=== PATIENT | female | born 1960 | race Caucasian/White ===

== ENCOUNTER 2019-04-11 15:35 | Emergency (ER) | payer MEDICAID, SELFPAY ==
[2019-04-11 15:38] VITALS: BP 151/81; PULSE 66; RESP 17; TEMP 36.8; O2SAT 99; BMI 28.4
--- NOTE | 2019-04-11 15:53 | ED.DCSUM_ITS ---
- ER Visit Summary Date of Service: 04/11/19 Chief Complaint: Neck pain History of Present Illness: The patient is a 59 F who presents with neck pain that has been constant for the past 3 days. Patient states that she woke up with pain in her neck 3 days ago. Patient describes her pain as throbbing. Patient states her pain is worse with movement. Patient states that prior to the neck pain starting she was doing a lot of extra lifting at work. Patient denies any radiation of the pain. Patient denies any paresthesias or weakness. Patient denies any fevers or chills. Patient denies any nausea or vomiting. Physical Examination: Vital signs are stable. Patient is afebrile. Patient is in no acute distress. Musculoskeletal exam reveals tenderness and spasm of the cervical paraspinal muscles, slightly worse on the left. There is no midline tenderness. There is no bony crepitance or step-off. Range of motion was limited in all motions of the cervical spine secondary to pain. Strength is 5/5 bilateral knee upper and lower extremities. There are no sensory deficits noted. Heart was regular rate and rhythm. Lungs are clear and equal bilaterally. Emergency Department Course and Treatment: Patient was advised that this is most likely musculoskeletal. Patient was given a dose of [place] here. Patient was given prescriptions for Naprosyn and Valium. Patient was instructed to follow- up with her primary care physician in 5 to 7 days. Patient understood and was agreeable with the plan. All questions were answered. Disposition: Discharge home Impression: Acute cervical strain This note was generated with [employer] dictation software. It may contain incorrect words, spelling, and punctuation that were not noted in review of the chart prior to signing ED Disposition - Plan for ED Patient: Disposition: Home or Assisted Living Diagnosis: Acute cervical myofascial strain Instructions: Neck Sprain/Strain Prescriptions: Naproxen [Naprosyn] 500 mg PO BID PRN #20 tab Prescription Printed Diazepam [Valium] 5 mg PO QHS PRN PRN #10 tab PRN Reason: Muscle Spasm Prescription Printed Referrals: [facility] Doctor,Out of [Primary Care Provider] - 5-7 Days
[2019-04-11 16:19] VITALS: RESP 18
[2019-04-11] MEDS: HYDROcodone Bitartrate/Apap 5/325 Tablet PO (16:21)
== END 2019-04-11 16:25 | disposition home or self-care (01) ==
LOC: ED 16:07
PROVIDERS: Emergency Provider Emergency Medicine
DX: S16.1XXA Strain of muscle, fascia and tendon at neck level, initial encounter (principal); M62.838 Other muscle spasm; X50.9XXA Other and unspecified overexertion or strenuous movements or postures, initial encounter; Y93.9 Activity, unspecified; Y92.9 Unspecified place or not applicable; Y99.9 Unspecified external cause status; I10 Essential (primary) hypertension; Z79.899 Other long term (current) drug therapy
CPT/HCPCS: 99282

== ENCOUNTER 2019-06-13 11:35 | Emergency (ER) | payer OTHER, MEDICAID, SELFPAY ==
[2019-06-13 11:37] VITALS: BP 169/76; PULSE 69; RESP 17; TEMP 36.7; O2SAT 99; BMI 28.5
--- NOTE | 2019-06-13 11:53 | ED.DCSUM_ITS ---
History of Present Illness Chief Complaint: Lower Extremity Injury Informant: Patient Onset: Days Context: Gradual Onset Current Severity: Mild - 3 days Maximum Severity: Moderate Narrative: Patient presents secondary to left knee pain. She states she was at work on Thursday (06/10) and was moving some heavy boxes. She does not remember a specific movement where she suddenly felt knee pain but states her knee started bothering her while she was at work. It is continued throughout the weekend. She denies any problems with her knees previously. She has never had surgery or injections. - Past Medical History (1) Hypertension Status: Chronic Past Medical History - Allergies and Home Meds Allergies/Adverse Reactions: Allergies No Known Allergies Allergy (Verified 06/13/19 11:36) Primary Care Physician: [facility] Doctor,Out of [NON-STAFF] - Prior records reviewed: Yes Lives: Spouse/ Significant Other Smoking Status: Never smoker Review of Systems General: Denies: Chills, Fever Eyes: Denies: Visual changes - bilaterally ENT: Denies: Bilateral ear pain Cardiovascular: Denies: Chest pain Respiratory: Denies: Dyspnea, Cough Gastrointestinal: Denies: Abdominal pain, Nausea, Vomiting, Diarrhea Genitourinary: Denies: Dysuria Musculoskeletal: Reports: Extremity Pain Skin: Denies: Rash Neurological: Denies: Parasthesia, Numbness Hematologic: Denies: Easy bruising, Easy bleeding Allergy: Denies: Uticaria Physical Exam Vital Signs/Narrative: Vital Signs Temp Pulse Resp BP Pulse Ox 06/13/19 11:37 98.1 F 69 17 169/76 H 99 Inital Vital Signs reviewed: Yes General: Well nourished, Well developed Head: Normocephalic ENT: Moist mucous membranes Neck: Supple Cardiovascular: Regular rate, Regular rhythm Respiratory: No distress, CTA bilaterally Abdomen: Soft, Nontender Extremities: - - Tenderness palpation along the medial joint line of the left knee. No significant edema noted. No overlying skin changes. She does not have significant pain with varus and valgus stress. She is able to raise her leg off the bed without difficulty. She has strong distal pulses and normal sensation. 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 Electronically Signed: Heron Roman, at 12:27 EDT , Service support , 06/13/19 12:00 Knee 4 or More Views [RAD] Stat - Medical Decision Making Results discussed with patient. She has evidence of a left knee sprain. She be treated with anti-inflammatories, Dylan wrap, crutches. She will follow-up with [employer] and if not improved will be referred to orthopedics. Patient is given work restrictions. ED Disposition - Plan for ED Patient: Disposition: Home or Assisted Living Diagnosis: Knee sprain Instructions: Knee Sprain Prescriptions: Naproxen [Naprosyn] 500 mg PO BID PRN PRN #20 tab PRN Reason: Pain Score 4-10/10 Transmission Status: Pending to [facility] Referrals: [facility] [GROUP OF PHYSICIANS] - 3-5 Days
--- NOTE | 2019-06-13 12:00 | RAD_ITS ---
STUDY: X-RAY - LEFT KNEE REASON FOR EXAM: Female, 59 years old. CONTINUED PAIN, WORSE ANTEROMEDIAL, S/P INJURY 2 DAYS AGO; -- UNABLE TO BEAR WEIGHT TECHNIQUE: 4 view(s) of the knee. COMPARISON: None. FINDINGS: Normal visualized distal femur. Normal visualized proximal tibia and fibula. Normal proximal tibiofibular articulation. Normal medial femorotibial compartment. Normal lateral femorotibial compartment. Normal patellofemoral articulation. Calcification in the soft tissues overlying the distal femoral condyle suggestive of Merline-Stieda disease. 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 Electronically Signed: Heron Roman, at 12:27 EDT , Service support ,
[2019-06-13 13:53] VITALS: BP 151/71; PULSE 60; RESP 17; O2SAT 98
== END 2019-06-13 13:54 | disposition home or self-care (01) ==
PROVIDERS: Emergency Provider Emergency Medicine
DX: S83.92XA Sprain of unspecified site of left knee, initial encounter (principal); X58.XXXA Exposure to other specified factors, initial encounter; Y93.89 Activity, other specified; Y92.89 Other specified places as the place of occurrence of the external cause; Y99.0 Civilian activity done for income or pay; I10 Essential (primary) hypertension; Z79.899 Other long term (current) drug therapy
CPT/HCPCS: 73564; 99284

== ENCOUNTER 2019-08-25 15:00 | Outpatient (RCR) | payer OTHER, SELFPAY ==
[2019-07-21 11:25] VITALS: BMI 28.5
--- NOTE | 2019-08-08 17:47 | HP.PTEVAL ---
Patient's Visit Information CINDY PALENCIA is a 59 year old F referred to Physical Therapy by PHILLY Badillo with a diagnosis of L knee strain. Date of Evaluation: 08/08/19 Physical Therapist: Rubin Ugarte, PT, ATC - Visit Plan Frequency: 2-3x /Week Duration: 4-6 Weeks Plan: L LE strengthening, balance and proprio, core strengthening, bike, and HEP - Subjective DOI: 06/11/2019. Pt reports she was carrying heavy boxes at work that date and she experienced a popping sensation. Pt reports she had to go to the ER where she had xrays taken. Pt reports she had an MRI taken recently which showed no positive findings. Pt reports she has to walk a lot at work, and notes this increases her pain. Pt notes the pain is on the medial aspect of L knee. No tingling or numbness in L LE at this time. Pt reports no sleep difficulty secondary to pain. Pt reports she has to hold on while negotiating stairs. L knee has not locked up or given out on her at this time. Pt reports increased standing and sitting increases her pain. 0/10 pain at rest, 4/10 after long day at work. - Pain L knee pain Pain Intensity (Out of 10): 0 Pain Intensity Range: 4 - Objective Neuro: B LE sensation is WNL to light touch. B achilles reflex= 1/3. Pallpation: Pain on medial joint line. No obvious deformity or crepitus at this time. ROM: R knee 0-128 degrees; L knee 0-90 degrees. MMT: L knee ext 4-/5 and painful with testing. All other B LE's 5/5 throughout. Special testing: No positive tests this date. Girth at knee joint: L knee 39 cm, R knee 40 cm - Goals Goal 1:: Decrease L knee pain x 50% to aid with increasing pt's tolerance for stance Goal Time Frame: 4-6 Weeks Goal 2:: Increase L knee strength x 1 grade to aid with stair negotiation Goal Time Frame: 4-6 Weeks Goal 3:: Increase L knee ROM x 20 degrees to aid with squatting acivity Goal Time Frame: 4-6 Weeks Goal 4:: I with HEP Goal Time Frame: 4-6 Weeks - Rehabilitation Potential Physical Therapy Diagnosis: L knee pain, weakness, and limited ROM secondary to L knee strain Rehabilitation Potential: Good - Anticipated Interventions Patient/Client Instruction: Educate patient on: Condition, Plan of Care For the Purpose of:: To improve self management Therapeutic Exercise to Include: Strength training, Endurance training, Balance training, Dynamic Lumbar Stabilization For the Purpose of:: To decrease pain, To increase ROM, To improve muscle performance and motor function Cryotherapy (ice pack, ice massage): Yes For the Purpose of:: To decrease pain Thank you for the opportunity to evaluate your patient. For Medicare and Medicare HMO plans, please review the plan of care and approve it. It will need to be FAXED BACK to us at [phone] for Medicare purposes. For Medicare only, by signing this I certify the plan of care. Please let me know if there are questions or concerns regarding this plan of care. Physician Signature: Date:
--- NOTE | 2019-12-07 13:57 | HP.PT.NRP ---
CINDY PALENCIA was seen in my office for initial evaluation on 08/08/19. The following Plan of Care was established for this patient: Initial Frequency: 2-3x /Week Initial Duration: 4-6 Weeks Patient/Client Instruction: Educate patient on: Condition, Plan of Care For the Purpose of:: To improve self management Therapeutic Exercise to Include: Strength training, Endurance training, Balance training, Dynamic Lumbar Stabilization For the Purpose of:: To decrease pain, To increase ROM, To improve muscle performance and motor function Cryotherapy (ice pack, ice massage): Yes For the Purpose of:: To decrease pain This patient was last seen in our office . Pertinent comments regarding their Physical therapy will appear below: Pt was treated for 8 PT visits for L knee pain through 08/25/19. Pt has not returned through todays date and is discontinued at this time. At this point I will be discontinuing this patient from physical therapy. I would be happy to see this patient again in the future if found appropriate by the physician. Thank you! Rubin Ugarte, PT, ATC
== END 2019-08-25 19:00 | disposition home or self-care (01) ==
LOC: PT 15:00
PROVIDERS: Referring Provider Physician Assistant; Visit Provider Physician Assistant
DX: S83.92XD Sprain of unspecified site of left knee, subsequent encounter (principal)
CPT/HCPCS: 97110; 97161

== ENCOUNTER 2022-02-03 16:46 | Outpatient (RCR) | payer MEDICAID, SELFPAY ==
--- NOTE | 2022-02-03 17:58 | HP.PTEVAL ---
Patient's Visit Information CINDY PALENCIA is a 61 year old F referred to Physical Therapy by DARIN METCALF with a diagnosis of OSTEOARTHRITIS. Date of Evaluation: 02/03/22 Physical Therapist: Frantz Hameed, PT, Cert MDT, OCS - Visit Plan Frequency: 2x /Week Duration: 4 Weeks Plan: PT INTERVETION ROM/FLEXABLITY RIGHT ,HIP STRENGTHENING HIP ,FUNCTIONAL STRENGTHENING AND NUSTEP - Subjective This 61 female presents to physical therapy with right hip pain. Patient has had pain in right hip in August with no injury. Patient was seen by PT four sciatica issues. Patient seen DR did x-rays of hip showed DJD . Pain located lateral hip ache occasional sharp pain. Aggravating factors squatting, stairs ,kneeling extended walking and standing aggravates symptoms. Alleviating rest ,sitting. Patient has generally have difficulty sleeping. Denies paresthesia/tingling. Bowel/bladder -. No abnormal night pain. 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 Patient goals not to have any more pain. VOCATION:[employer]. - Pain Right Hip Pain Intensity (Out of 10): 8 Pain Intensity Range: 10 - Objective POSTURE: mild forward posture. GAIT: reciprocal pattern slight antalgic gait right side. SYMMTRIES: align. PALPTION: tender. PROM: flexion hip 105 degrees, hip abduction 45 degrees ,hip IR 40 degrees ,hip ER 55 degrees. MMT ( [place]) : quads 23.7 ,hamstrings 22.8, hip flexion 14.5,hip abduction 5.6. FLEXABLITY: hamstrings mod tight ,piriformis mod tight. LUMBAR ROM: flexion min/mod loss ,extension mod loss ,side glides min loss - Special Tests L/S Slump test left side: Negative L/S Slump test right side: Negative L/S Left Straight Leg Raise: Negative L/S Right Straight Leg Raise: Negative R Hip Scour: Positive R Hip KURT - Intraarticular Pathology: Negative R Hip Trendelenberg - Glut Medius: Negative R Hip Cecilia - IT Band: Negative - Balance/Special Test Scores Lower Extremity Functional Score: 26 - Goals Goal 1:: Patient to be I with HEP for hip Goal Time Frame: 4-6 Weeks Goal 2:: Patient to improve ROM hip by 5-10 degrees to im prove function Goal Time Frame: 4-6 Weeks Goal 3:: Patient to demonstrate 50% improvement with decrease pain and improved function Goal Time Frame: 4-6 Weeks Goal 4:: Patient to improve peak force of quads /hams/hip 5-10 to improve function with gait Goal Time Frame: 4-6 Weeks Goal 5:: Patient to improve LFES score by 5 -10 points to improve QOL Goal Time Frame: 4-6 Weeks - Rehabilitation Potential Physical Therapy Diagnosis: Patient has right hip pain that will radiates to groin region ,along with weakness hip glut Medius , antalgic gait and decrease ROM affects stairs ,walking, squatting thus benefit from skilled PT Rehabilitation Potential: Good - Anticipated Interventions Patient/Client Instruction: Educate patient on: Condition, Plan of Care For the Purpose of:: To decrease pain, To increase ROM, To improve muscle performance and motor function, To improve ability to perform ADL's, To increase tolerance to activity/condition/position, To improve ability of physical actions for home/community/work/leisure, To improve health of tissue, To decrease soft tissue restriction, To increase flexibility/ROM Therapeutic Exercise to Include: Strength training, Power training, Flexibilty training, Passive ROM, Active ROM Comment: QUADS/HAMS/HIP For the Purpose of:: To decrease pain, To increase ROM, To improve muscle performance and motor function, To improve ability to perform ADL's, To increase tolerance to activity/condition/position, To improve ability of physical actions for home/community/work/leisure, To improve health of tissue, To decrease soft tissue restriction, To increase flexibility/ROM, To improve endurance Thank you for the opportunity to evaluate your patient. For Medicare and Medicare HMO plans, please review the plan of care and approve it. It will need to be FAXED BACK to us at [phone] for Medicare purposes. For Medicare only, by signing this I certify the plan of care. Please let me know if there are questions or concerns regarding this plan of care. Physician Signature: Date:
--- NOTE | 2022-03-28 10:43 | HP.PT.NRP ---
CINDY PALENCIA was seen in my office for initial evaluation on 02/03/22. The following Plan of Care was established for this patient: Initial Frequency: 2x /Week Initial Duration: 4 Weeks Patient/Client Instruction: Educate patient on: Condition, Plan of Care For the Purpose of:: To decrease pain, To increase ROM, To improve muscle performance and motor function, To improve ability to perform ADL's, To increase tolerance to activity/condition/position, To improve ability of physical actions for home/community/work/leisure, To improve health of tissue, To decrease soft tissue restriction, To increase flexibility/ROM Therapeutic Exercise to Include: Strength training, Power training, Flexibilty training, Passive ROM, Active ROM For the Purpose of:: To decrease pain, To increase ROM, To improve muscle performance and motor function, To improve ability to perform ADL's, To increase tolerance to activity/condition/position, To improve ability of physical actions for home/community/work/leisure, To improve health of tissue, To decrease soft tissue restriction, To increase flexibility/ROM, To improve endurance This patient was last seen in our office . Pertinent comments regarding their Physical therapy will appear below: Patient was seen for PT for hip pain for HEP At this point I will be discontinuing this patient from physical therapy. I would be happy to see this patient again in the future if found appropriate by the physician. Thank you! Frantz Hameed, PT, Cert MDT, OCS Balance/Gait/Functional tests - Balance/Special Test Scores Lower Extremity Functional Score: 26
== END 2022-02-03 19:00 | disposition home or self-care (01) ==
LOC: PT 16:46
DX: M19.90 Unspecified osteoarthritis, unspecified site (principal)
CPT/HCPCS: 97110; 97162

== ENCOUNTER → 2022-03-10 | Outpatient (CLI) | payer MEDICAID, SELFPAY ==
--- NOTE | 2022-03-10 13:51 | CT_ITS ---
STUDY: CT SOFT TISSUE NECK WITH CONTRAST REASON FOR EXAM: Female, 61 years old. Right sided neck mass. History of hemochromatosis. RADIATION DOSAGE (If Supplied By Facility): CTDIvol = ( 17.13 ) mGy, DLP = ( 479.29 ) mGycm TECHNIQUE: The patient was scanned in a multi-detector CT scanner. High resolution transaxial imaging was performed following intravenous administration of IV 75mL Isovue-300. Sagittal and coronal images were reconstructed. Individualized dose optimization techniques were used for this CT. COMPARISON: None. FINDINGS: Normal bilateral parotid glands. 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 Normal bilateral parapharyngeal spaces. Normal bilateral carotid spaces. Normal bilateral sublingual and submandibular glands and spaces. Normal visualized nasopharynx. Normal retropharyngeal space. Normal perivertebral space. Normal visualized bilateral faucial tonsils. The visualized tongue, tongue base and oropharynx are normal. There are minimally enlarged lymph nodes of the neck, with preservation of normal ani architecture, consistent with a reactive lymph hyperplasia. There is no demonstrated solid or cystic mass lesion. There is no abnormal contrast enhancement. Normal epiglottis, bilateral vallecula and hypopharynx. The pre-epiglottic and paraglottic adipose spaces are normal. Normal visualized bilateral piriform sinuses, aryepiglottic folds, vocal cords, and arytenoid-cricoid articulations. Normal subglottic trachea. Normal bilateral lobes of the thyroid gland. Normal visualized pulmonary apices. Normal visualized paranasal sinuses. There is multilevel degenerative changes of the cervical spine. Loss of the normal cervical lordosis. CT/Soft Tissue Neck WITH Contrast IMPRESSION: No acute abnormality is seen. Electronically Signed: Heron Roman MD at 15:34 EST ,
[2022-03-10 14:41] LABS: CREATININE FINGERSTICK < 0.9 mg/dL (0.55-1.02); EGFR FINGERSTICK > 60.0000 mL/min (>60)
== END | disposition home or self-care (01) ==
LOC: CT 13:48
PROVIDERS: Referring Provider Otolaryngology; Visit Provider Otolaryngology
DX: R22.1 Localized swelling, mass and lump, neck (principal)
CPT/HCPCS: 70491; Q9967